=== PATIENT | female | born 1970 | race Caucasian/White ===

== ENCOUNTER 2017-03-26 19:56 | Emergency (ER) | payer OTHER ==
[~2017-03-26] VITALS: Ht 160 cm; Wt 74.8 kg
--- NOTE | 2017-03-26 20:09 | NUR ---
Pt ambulated to room with steady gait. Pt c/o Left sided chest pain/pressure started a few hours ago radiating down her left arm and up to left jaw. Pt sts it is a /. Pt changed into gown and placed on monitor. Pt NSR. Resp even and unlabored. Pt restingin position of comfort for self. Awaiting further eval.
[2017-03-26] MEDS ORDERED: ASPIRIN 81 MG TAB.CHEW PO ONE (20:30)
[2017-03-26] MEDS ORDERED: NITROGLYCERIN 0.4 MG/TAB BOTTLE SL ONE ×3 (20:30→22:00)
[2017-03-26] MEDS ORDERED: NITROGLYCERIN OINT 1 GM PACKET TP ONE ×3 (20:30→22:00)
[2017-03-26 20:36] LABS: BASOPHILS # (AUTO) 0.1 K/uL (0.0-8.0); BASOPHILS % (AUTO) 0.6 % (0.0-2.0); EOSINOPHILS # (AUTO) 0.2 K/uL (0.0-0.7); EOSINOPHILS % (AUTO) 2.3 % (0.0-7.0); HEMATOCRIT 39.5 % (37-47); HEMOGLOBIN 13.1 G/DL (12.0-16.0); LYMPHOCYTES # (AUTO) 3.3 K/UL (0.8-4.8); LYMPHOCYTES % (AUTO) 35.1 % (20.5-51.5); MEAN CORPUSCULAR HEMOGLOBIN 29.1 UUG (27.0-31.0); MEAN CORPUSCULAR HGB CONC 33 g/dL (32.0-37.0); MEAN CORPUSCULAR VOLUME 87.9 FL (81.0-99.0); MONOCYTES # (AUTO) 0.9 K/UL (0.1-1.30); MONOCYTES % (AUTO) 9.3 % (0.0-11.0); NEUTROPHILS # (AUTO) 4.9 K/UL (1.8-8.9); NEUTROPHILS % (AUTO) 52.7 % (38.5-71.5); PLATELET COUNT (AUTO) 381 K/UL (150-450); RED BLOOD CELL COUNT(AUTO) 4.49 MIL/UL (4.2-5.4); WHITE BLOOD COUNT (AUTO) 9.4 K/UL (4.0-11.2)
[2017-03-26] MEDS ORDERED: ASPIRIN 81 MG TAB.CHEW ONE ×2 (20:39→22:00)
[2017-03-26] MEDS ORDERED: IV NORMAL SALINE 500 ML IV ONE (20:41)
[2017-03-26 20:43] LABS: CREATININE 0.9 mg/dL (0.6-1.3); POTASSIUM 3.6 mmol/L (3.5-5.1)
[2017-03-26] MEDS ORDERED: ACETAMINOPHEN ES 500 MG TABLET PO ONE (20:45)
[2017-03-26 20:56] LABS: BILIRUBIN,DIRECT 0.1 mg/dL (0.0-0.2); BILIRUBIN,TOTAL 0.2 mg/dL (0.2-1.0); TOTAL PROTEIN, SERUM 7.3 g/dL (6.4-8.2)
[2017-03-26] MEDS ORDERED: ACETAMINOPHEN ES 500 MG TABLET ONE ×2 (20:59→22:00)
[2017-03-26] MEDS ORDERED: HYDROMORPHONE 2 MG/1 ML DISP.SYRIN ONE (21:29)
[2017-03-26] MEDS ORDERED: ONDANSETRON 4 MG/2 ML VIAL ONE (21:30)
[2017-03-26] MEDS ORDERED: ONDANSETRON IV *ER 4 MG/2 ML VIAL IV ONE (21:30)
[2017-03-26] MEDS ORDERED: HYDROMORPHONE 1 MG/1 ML DISP.SYRIN IV ONE (21:30)
--- NOTE | 2017-03-26 21:30 | NUR ---
Pt cont to c/o chest pressure and headache. MD notified. Pt medicated with narcotic pain medication. Fluid bolus completed. Pt resting in position of comfort for self. Resp even and unlabored. Pt remains NSR on monitor.
[2017-03-26] MEDS ORDERED: ONDANSETRON IV *ER 4 MG/2 ML VIAL ONE (22:00)
--- NOTE | 2017-03-26 23:02 | NUR ---
Pt sts chest pressure improving. Pt ambulated to br with slow and steady gait
--- NOTE | 2017-03-27 01:00 | NUR ---
Pt stable for discharge per Dr. Solorio. IV dc'd, catheter intact, drsg applied. No problems noted to site. Pt given ACI. Pt verbalized understanding of dc instructions. Pt ambulated out of ER with steady gait and ride home.
[2017-03-27 04:25] VITALS: BP 101/57
== END 2017-03-27 01:05 | disposition home or self-care (01) ==
LOC: ER 19:58
DX: R07.9 Chest pain, unspecified (principal)
CPT/HCPCS: 36415; 71010; 80048; 80076; 83880; 84484 ×2; 84703; 85025; 85730; 93005; 96361; 96374; 96375; 99285; A4663; J2405; J7040; 70030-TC

== ENCOUNTER 2023-03-10 23:20 | Emergency (ER) | payer OTHER ==
[~2023-03-10] VITALS: Ht 160 cm; Wt 81.8 kg
[2023-03-11 00:05] VITALS: BP 135/84; TEMP 98.4; O2SAT 99
== END 2023-03-11 00:03 | disposition home or self-care (01) ==
LOC: ER 23:25
DX: R22.0 Localized swelling, mass and lump, head (principal); R14.0 Abdominal distension (gaseous); H02.401 Unspecified ptosis of right eyelid
CPT/HCPCS: A4663